=== PATIENT | female | born 1945 | race Caucasian/White ===

== ENCOUNTER → 2019-01-20 | Outpatient (CLI) | payer OTHER ==
--- NOTE | 2019-01-20 17:39 | PCVCIMAG ---
APPROVED REPORT Study performed: 01/20/2019 16:01:30 EXAM: Comprehensive 2D, Doppler, and color-flow Echocardiogram Patient Location: Echo lab Room #: 2Status: routine BSA: 1.98 HR: 67 bpmBP: 112/70 mmHg Rhythm: NSR Other Information Study Quality: Good Indications Murmur Syncope 2D Dimensions IVSd: 8.59 (7-11mm)LVOT Diam: 20.07 (18-24mm) LVDd: 36.37 mm PWd: 6.86 (7-11mm)Ascending Ao: 25.29 (22-36mm) LVDs: 17.55 (25-40mm) Left Atrium: 23.14 (27-40mm) Aortic Root: 22.45 mm LV Single Plane 4CH: 60.57 % LV Single Plane 2CH: 67.39 % Biplane EF: 63.2 % Volumes Left Atrial Volume (Systole) Single Plane 4CH: 55.30 mLSingle Plane 2CH: 41.48 mL Biplane LA Volume: 49.00 mLLA ESV Index: 25.00 mL/m2 Aortic Valve AoV Peak Ha.: 1.76 m/s AO Peak Gr.: 13.23 mmHgLVOT Max P.64 mmHg LVOT Max V: 1.02 m/s DANDRE Vmax: 1.83 cm2 Mitral Valve E/A Ratio: 0.9 MV Decel. Time: 244.80 ms MV E Max Ha.: 0.70 m/s MV A Ha.: 0.76 m/s IVRT: 93.43 ms TDI E/Lateral E': 4.67E/Medial E': 11.67 Medial E' Ha.: 0.06 m/s Lateral E' Ha.: 0.15 m/s Pulmonary Valve PV Peak Ha.: 0.98 m/sPV Peak Gr.: 3.86 mmHg Pulmonary Vein P Vein S: 0.45 m/sP Vein A: 0.33 m/s P Vein D: 0.30 m/sP Vein A Dur.: 100.3 msec P Vein S/D Ratio: 1.50 Tricuspid Valve TR Peak Ha.: 1.64 m/s TR Peak Gr.: 10.73 mmHg TV Vmax: 0.69 m/sPA Pressure: 18.00 mmHg Left Ventricle The left ventricle is normal size. There is normal LV segmental wall motion. There is normal left ventricular wall thickness. Left ventricular systolic function is normal. The left ventricular ejection fraction is within the normal range. LVEF is 60-65%. The left ventricular diastolic function is normal. Right Ventricle The right ventricle is normal size. The right ventricular systolic function is normal. Atria The left atrium size is normal. The right atrium size is normal. Aortic Valve Aortic valve is trileaflet. Minimal aortic valve sclerosis. No aortic regurgitation is present. There is no aortic valvular stenosis. Mitral Valve The mitral valve is normal in structure. There is no mitral valve regurgitation noted. No evidence of mitral valve stenosis. Tricuspid Valve The tricuspid valve is normal in structure. Trace tricuspid regurgitation with a PA pressure of 18 mmHg. Pulmonic Valve The pulmonary valve is normal in structure. There is no pulmonic valvular regurgitation. Great Vessels The aortic root is normal in size. The ascending aorta is normal in size. Aortic arch is normal in caliber. IVC is normal in size and collapses >50% with inspiration. Pericardium There is no pericardial effusion. There is no pleural effusion. <Conclusion> The left ventricle is normal size. LVEF is 60-65%. The left ventricular diastolic function is normal. The right ventricle is normal size. The left atrium size is normal. The right atrium size is normal. Aortic valve is trileaflet. Minimal aortic valve sclerosis. There is no aortic valvular stenosis. There is no mitral valve regurgitation noted. Trace tricuspid regurgitation with a PA pressure of 18 mmHg. The aortic root is normal in size. There is no pericardial effusion.
== END | disposition home or self-care (01) ==
LOC: PCVCCLINIC 15:15
PROVIDERS: ATTEND Internal Medicine Cardiovascular Disease
DX: I35.8 Other nonrheumatic aortic valve disorders (principal); R05 Cough; R01.1 Cardiac murmur, unspecified
CPT/HCPCS: 93306

== ENCOUNTER → 2019-01-25 | Outpatient (CLI) | payer OTHER ==
[~2019-01-25] MED LIST: REGADENOSON 0.4 MG/5 ML DISP.SYRIN. IV ONE
--- NOTE | 2019-01-25 14:19 | PCVCIMAG ---
APPROVED REPORT Imaging Protocol: Rest Tc-99m/Stress Tc-99m 1 day Study performed: 01/25/2019 09:14:02 Indication: Multiple Syncopal events Patient Location: Out-Patient Stress Nurse: Catrina Marino RN, Donna Lopes RN [place] Tech:Yris Gillis [facility] Ht: 5 ft 7 in Wt: 191 lbs BSA: 1.98 m2 HR: 64 bpm BP: 195/90 mmHg BMI: 29.91 Medical History Medical History: CVD Allergies: ASA, Sulfa, PCV, Codeine Cardiac Risk Factors: Age, FHX of CAD Resting Data Rest SPECT myocardial perfusion imaging was performed in supine position 45 minutes following the intravenous injection of 10.6 mCi of Tc-99m Sestamibi. Time of rest injection: 0845 Date: 01/25/2019 Administration Route: IV Administration Site: Right AC Pharmacologic Stress Pharmacologic stress test was performed by injecting Regadenoson 0.4 mg IV push over 10-15 seconds immediately followed by the intravenous injection of 31.6 mCi of Tc-99m Sestamibi. Time of stress injection: 1000 Date: 01/25/2019 Administration Route: IV Administration Site: Right AC Gated Stress SPECT was performed 45 minutes after stress injection. The images were gated to evaluate regional wall motion and calculate left ventricular ejection fraction. Stress Test Details Stress Test: Pharmacologic stress testing performed using 0.4 mg of regadenoson per 5 mL given IV over 10 seconds. Reason for pharmacologic stress test: physical limitation, history of syncope. HRMax Heart Rate (APMHR): 145 bpm Resting HR: 64 bpmTarget HR (85% APMHR): 123 bpm Max HR Achieved: 85 bpm % of APMHR: 58 Recovery HR: 77 bpm BP Resting BP: 195/90 mmHg Max BP: 207/195 mmHg Recovery BP: 181/84 mmHg ECG Resting ECG: Sinus Rhythm Stress ECG: Sinus Rhythm ST Change: Non-ischemic Arrhythmia: None Recovery ECG: Sinus Rhythm Clinical Reason for Termination: Completed protocol Stress Symptoms: Lightheaded Exercise duration: 0 min 55 sec Symptoms resolved with caffeine. Study Quality Study: Good Artifact: Mild Breast artifact Study Data Post stress, the left ventricular ejection was 85%.. SSS: 9 SRS: 8 SDS: 2 TID = 0.75. Perfusion There is a small area of mildly reduced uptake in the apical segment of the distal lateral wall which is seen on the stress images as well as the resting images. This area thickens and moves normally and is most consistent with attenuation artifact. Wall Motion Normal left ventricular wall motion. Nuclear Conclusion ECG Findings: negative for ischemia Clinical Findings: non-diagnostic Nuclear Findings: negative for ischemia Exercise Capacity: not assessed Left Ventricular Function: normal Risk Study: low This study is of low probability for inducible ischemia or prior infarct. Normal global and segmental LV systolic function. Artifact: Mild Breast artifact
== END | disposition home or self-care (01) ==
LOC: PCVCIMAG 08:00
PROVIDERS: ATTEND Internal Medicine Cardiovascular Disease
DX: R55 Syncope and collapse (principal); R01.1 Cardiac murmur, unspecified
CPT/HCPCS: 78452; 93017; A9500; J2785